=== PATIENT | male | born 1970 | race Caucasian/White ===

== ENCOUNTER → 2023-04-22 06:15 | Day surgery (SDC) | payer OTHER, SELFPAY | LOC: GI 06:15 | PROVIDERS: ATTENDING PHYSICIAN Internal Medicine Gastroenterology; FAMILY PHYSICIAN Physician Assistant Medical | DX: Z12.11 Encounter for screening for malignant neoplasm of colon (principal); K57.30 Diverticulosis of large intestine without perforation or abscess without bleeding | CPT/HCPCS: G0121 ==

== ENCOUNTER 2023-10-31 06:47 | Emergency (ER) | payer OTHER, SELFPAY ==
[2023-10-31 06:52] VITALS: BP 178/117
--- NOTE | 2023-10-31 08:30 | ED.MUSCINJ ---
HPI-Injury
General
Chief Complaint: Musculo-Skeletal Complaint
Source: patient
Exam Limitations: none
Time Seen by Provider: 10/31/23 07:23
Nursing documentation reviewed up to this point in time: agreed with
History of Present Illness-Injury
Initial Injury comments:
52-year-old male with history of HTN, HLD presents stating gradually increasing swelling and pain of the right knee over the past 3 days. Denies fever or chills. No recollection of overuse or injury.
He does have a history of gout in that knee and typically when he gets the swelling and pain he starts colchicine and within 2 days the pain is significantly improved, the pain is not improving with his colchicine this time.
Past History
Past History
ED Past Medical History: HTN and Hypercholesterolemia
ED Past Surgical History: Tonsilectomy
Social History
Tobacco: Non-smoker
Personal:
Living: with family
Employment: Employed
Review of Systems
Review of Systems
Allergies reviewed?: Yes
All Other Systems: ROS reviewed and negative except as documented in HPI and ROS
Constitutional: Denies fever or chills
Musculoskeletal: Reports other (pain, swelling right knee)
Skin: Reports no symptoms
Musculoskeletal Injury Exam
Musculoskeletal Injury Exam
Right Knee:
Pain with Movement?: Moderate
Tender to palpation?: Moderate
Soft tissue swelling?: Moderate
Joint effusion?: Moderate
Hematoma-local bleeding into tissue?: None
Crepitus with movement?: No
Joint instability?: No
Malalignment/deformity?: No
Range of motion: Limited
Distal skin color and temperature: normal-warm & good color
Capillary Refill: normal
Normal distal neurovascular exam?: Yes
Phy Exam
Physical Exam
Physical Exam:
PHYSICAL EXAMINATION:
General: no apparent distress, not acutely ill
Neuro: alert and oriented.
Psychiatric: well kept. interactive and cooperative
Musculoskeletal: Moves with ease
Skin: Warm, pink.
Injury Course
Orders/Labs/Results
Orders:
Orders
10/31/23 06:56
Knee, Right 4 or More Views [CR Knee- Right 4 Or More View*] Urgent
Comment:
Reason For Exam: pain, swelling
10/31/23 08:32
Body Fluid Cell Count Urgent
What is the Body Fluid: joint
Date Specimen was Collected: 10/31/23
Time Specimen was Collected: 08:31
Comment: with DIFF
Body Fluid Crystals Urgent
What is the Body Fluid: joint
Date Specimen was Collected: 10/31/23
Time Specimen was Collected: 08:31
Body Fluid Glucose Urgent
Fluid Source: Other
Other Source: R knee
Date Specimen was Collected: 10/31/23
Time Specimen was Collected: 08:31
Lyme PCR, DNA [S] Urgent
Fluid Culture with Gram Stain Urgent
KELY Source: Joint Fluid
Specimen Description:
Date Specimen was Collected: 10/31/23
Time Specimen was Collected: 08:31
10/31/23 09:34
Brody Wrap Right-Treatment ONCE
Procedures
Incision/Drainage/Joint Aspiration
Right Lateral Knee:
Anethesia: 1% Lidocaine with Epi
Preparation: cleaned with alcohol wipe
Type of procedure: aspiration
Nature of site: other (effusion)
How much fluid was obtained?: number in mls
Fluid description: clear and straw colored
Treatment: bandaid applied
MDM/Problems Addressed
Differential Diagnosis Includes:
Inflammatory fluid, hemarthrosis, torn meniscus, Lyme's
MDM/Problems Addressed:
52-year-old male with history of HTN, HLD presents stating gradually increasing swelling and pain of the right knee over the past 3 days. Denies fever or chills. No recollection of overuse or injury.
He does have a history of gout in that knee and typically when he gets the swelling and pain he starts colchicine and within 2 days the pain is significantly improved, the pain is not improving with his colchicine this time.
Afebrile, NAD
No redness or warmth, do not suspect gout, no sign of cellulitis
R knee xray initially read by this examiner: No fracture, mild DJD, +suprapatellar effusion.
9:45 a.m
Joint fluid results consistent with inflammatory fluid, no infection
Lyme test pending
Pt ambulating well with brody wrap.
Referred to orthopedics
*Critical Care Note
Total Time (30-74mins, 75-104mins- exclusive of procedures): Not Applicable
ED Attending Note
-
Portions of this chart may have been created with voice recognition software.� Occasional wrong word or��sound alike� substitutions may have occurred due to the inherent limitations of voice recognition software.
Discharge Plan
Departure
Patient Disposition: Home (Routine Discharge)
Date of Disposition: 10/31/23
Time of Disposition: 09:49
Patient with high blood pressure during this ER visit?: Yes
Condition: Good
Discharge Problem:
Effusion of right knee
Instructions: Swollen Joints (DC), Using Cold for Pain, BLOOD PRESSURE
Prescriptions:
No Action
diltiazem HCl [Taztia XT] 360 MG capsule,extended release 24 hr
360 mg PO DAILY
losartan-hydrochlorothiazide 1 EACH tablet
1 tab PO DAILY
nebivolol [Bystolic] 10 MG tablet
10 mg PO DAILY
Referrals:
Basilia Estrada PA [Family Provider] -
Carson Nichole MD [Active] - Next open appointment
Activity Restrictions/Additional Instructions:
As we discussed, wear the Brody wrap as needed for comfort, support, swelling
Tylenol or ibuprofen as needed for pain.
Cold compress 20 minutes off and on is much as you can in the next 2 days to minimize swelling.
I have provided you with the name of an orthopedic doctor to follow-up with if your symptoms persist.
Your blood pressure is a little high, not dangerously high. Check it at home under calm circumstances. If it remains consistently above 130/80, discuss with your doctor.
Interventions
Interventions:
*Risk Screen - Suicide Last Done: 10/31/23 06:52
*General Assessment Last Done: 10/31/23 06:52
*Neglect/Abuse Screening Last Done: 10/31/23 06:52
*Nursing Disposition Last Done: 10/31/23 10:10
ED-Musculoskeletal Assessment Last Done: 10/31/23 08:39
Discharge Date and Time
Discharge Date/Time: 10/31/23 10:11
Print Language: ROMANSH
[2023-10-31 08:38] VITALS: BP 168/98
[2023-10-31 09:22] LABS: Body Fluid Glucose 159 mg/dl
[2023-10-31 09:39] LABS: Body Fluid Mononuclear 30.1 %; Body Fluid Polymorphonuclear 69.9 %; Body Fluid WBC 7730 /CUMM
[2023-10-31 09:43] LABS: Body Fluid Second Tech CMB
[2023-10-31 10:00] VITALS: BP 163/99
[2023-11-03 20:09] LABS: Lyme Disease DNA by PCR Not Detected; Lyme Source Synovial fluid
== END 2023-10-31 10:11 | disposition home or self-care (01) ==
LOC: EMR 06:47
PROVIDERS: Registered Nurse; EMERGENCY PHYSICIAN Emergency Medicine; FAMILY PHYSICIAN Physician Assistant Medical
DX: M25.461 Effusion, right knee (principal); I10 Essential (primary) hypertension; E78.00 Pure hypercholesterolemia, unspecified
CPT/HCPCS: 99284; 20610; 73564; 82945; 87015; 87070; 87205; 87476; 89051; 89060

== ENCOUNTER 2024-05-14 05:38 | Emergency (ER) | payer OTHER, SELFPAY ==
[2024-05-14 05:40] VITALS: BP 213/135
[2024-05-14 06:03] VITALS: BMI 34.2
[2024-05-14 06:05] VITALS: BP 175/117
--- NOTE | 2024-05-14 06:05 | ED.GENMED ---
History of Present Illness
General
Chief Complaint: Blood Pressure Problem
Time Seen by Provider: 05/14/24 06:04
History of Present Illness
History of Present Illness:
TIME OF INITIAL ENCOUNTER: 6:10 AM
HPI: Pt woke w/ JOSE 0430 today. He took Aleve and now the headache is significantly improved. His BP was as high as 223 systolic prior to coming here. His blood pressures have been in the 150s range in the past. No vision change. Nevibolol was
increased a few months ago. He also takes amlodipine and losartan. He did take his morning BP meds prior to coming here.
EXAM:
GENERAL: Well appearing in no distress, high blood pressure noted
HEENT: Moist oral mucosa
CARDIOVASCULAR: No murmurs, normal heart rate, regular rhythm, No chest wall tenderness
PULMONARY: No respiratory distress, breath sounds are clear and equal
ABDOMEN: Soft with no peritoneal signs, no tenderness
NEUROLOGIC: Excellent strength all extremities, no coordination deficits
PSYCHIATRIC: Appropriate mental status, normal insight and judgement
EXTREMITIES: Nontender, no edema, moves all extremities equally
SKIN: No rash, no lesions
NUMBER AND COMPLEXITY OF PROBLEMS ADDRESSED AT THE ENCOUNTER
� Chronic conditions affecting care: High blood pressure, hyperlipidemia, diabetes
� Acute Exacerbation and/or Progression of Chronic Illness: This is an acute problem
� Differential Diagnosis includes: Hypertensive urgency/emergency, poorly controlled high blood pressure, patient denies medication noncompliance, renal insufficiency
AMOUNT AND/OR COMPLEXITY OF DATA TO BE REVIEWED AND ANALYZED
� I performed an independent evaluation of and my interpretation is:
EKG: Sinus 65, normal axis, no acute ST abnormality, LVH
CT:
X-rays:
Laboratory Studies: Creatinine 1.1, glucose 196, CBC unremarkable
Other:
� Review of other/old records: I reviewed records, CAT scan of brain in 2013 was unremarkable
� Clinical information was obtained by an independent historian: I spoke to at bedside
� Prescriptions/Medications Considered but not given:
� Further testing considered but not performed:
RISK OF COMPLICATIONS AND/OR MORBIDITY OR MORTALITY OF PATIENT MANAGEMENT
� Social determinants of health affecting care:
� Discussion with other providers: I discussed case with Dr. Fam as patient's blood pressure has been markedly elevated earlier today.
� Escalation of care including admission/observation vs risk of discharge considered: The patient took his BP meds including amlodipine 10 mg, nebivolol 20 mg, and losartan 100 mg. His heart rate has been as low as 49 here.
Initial blood pressures to the 13/135 but without any additional intervention was down to 142/105.
ANY OTHER UPDATES:
7:20 AM: I reassessed patient. No further issues and headache has continued to improve after he took Aleve earlier today. Dr. Fam states that the patient can call his office for follow-up. I also informed patient of the high blood sugar and
should follow-up with PMD as well.
Past History
Past History
ED Past Medical History: HTN and Hypercholesterolemia
ED Past Surgical History: Tonsilectomy
Social History
Tobacco: Non-smoker
Personal:
Living: with family
Employment: Employed
Phy Exam
Physical Exam
Physical Exam:
See HPI
Course
Orders/Labs/Results
Orders:
Orders
05/14/24 05:44
ECG [Electrocardiogram (*1)] Urgent
Reason for Study: Hypertension, Benign
EKG- Treatment ONCE
05/14/24 06:35
Basic Metabolic Panel Urgent
Complete Blood Count/With Diff Urgent
Abnormal Lab Results
05/14/24
06:35
MPV 10.5 H fL
(7.4-10.4)
Absolute Monos (auto) 0.7 H 10^3/uL
(0.1-0.6)
Monocytes % 10.9 H %
(1.7-9.3)
Glucose 196 H mg/dl
(70-99)
05/14/24 06:35
05/14/24 06:35
Vital Signs
Initial and Last Documented VS:
Initial Vital Signs
Temp Pulse Resp BP Pulse Ox
36.8 C 74 22 213/135 100
05/14/24 05:40 05/14/24 05:40 05/14/24 05:40 05/14/24 05:40 05/14/24 05:40
Last Documented Vital Signs
Temp Pulse Resp BP Pulse Ox
36.8 C 49 10 142/105 98
05/14/24 05:40 05/14/24 07:00 05/14/24 07:00 05/14/24 07:00 05/14/24 07:00
*Critical Care Note
Total Time (30-74mins, 75-104mins- exclusive of procedures): Not Applicable
ED Attending Note
-
Portions of this chart may have been created with voice recognition software.� Occasional wrong word or��sound alike� substitutions may have occurred due to the inherent limitations of voice recognition software.
Discharge Plan
Departure
Prescriptions:
No Action
atorvastatin 20 mg Tablet
20 mg PO DAILY
amlodipine 10 mg Tablet
10 mg PO DAILY
metformin 1,000 mg Tablet
1,000 mg PO BID
losartan 100 mg Tablet
100 mg PO DAILY
nebivolol 20 mg Tablet
20 mg PO DAILY
Interventions
Interventions:
*Risk Screen - Suicide Last Done: 05/14/24 05:40
*General Assessment Last Done: 05/14/24 06:06
*Neglect/Abuse Screening Last Done: 05/14/24 05:40
ED- Fall Risk Assessment Last Done: 05/14/24 06:42
*ED COVID-19 Vaccine History Last Done: 05/14/24 06:03
ED- Cardiac Assessment Last Done: 05/14/24 07:04
ED- Neurological Assessment Last Done: 05/14/24 07:04
ED- Pulmonary Assessment Last Done: 05/14/24 07:05
Discharge Date and Time
Print Language: CYMRAES
--- NOTE | 2024-05-14 06:09 | EDRN ---
Pt woke this morning with L sided headache. Pt checked his bp and it was 228/150. Pt was going to 'sleep it off' but thought it was too high and he should be evaluated. Pt checks his bp daily and usually runs around 150/100. No photophobia, n/v,
dizziness, weakness, cp/sob, abd pain, fever/chills. Pt took aleve at 0430, pt unsure if it helped his pain.
[2024-05-14 06:30] VITALS: BP 170/116
[2024-05-14 06:50] LABS: % Basophils 1.2 % (0-2); % Eosinophils 5.1 % (0-6); % Immature Granulocytes 0.3 % (0-0.5); % Lymphocytes 26.9 % (20.5-51.1); % Monocytes 10.9 % (1.7-9.3); % Neutrophils 55.6 % (42.2-75.2); Absolute Basophils 0.1 10^3/uL (0-0.2); Absolute Eosinophils 0.3 10^3/uL (0-0.7); Absolute Lymphocytes 1.6 10^3/uL (1.2-3.4); Absolute Monocytes 0.7 10^3/uL (0.1-0.6); Absolute Neutrophils 3.4 10^3/uL (1.4-6.5); Hematocrit 42.7 % (39.0-52.0); Hemoglobin 14.6 g/dL (13.0-18.0); Mean Corp Hgb Conc. 34.2 g/dL (33.0-37.0); Mean Corpuscular Hgb 28.9 pg (27.0-31.0); Mean Corpuscular Volume 84.4 fL (80.0-94.0); Mean Platelet Volume 10.5 fL (7.4-10.4); Nucleated Red Blood Cells % 0 % (-); Platelet Count 253 10^3/uL (130-400); Red Blood Cell Count 5.06 10^6/uL (4.70-6.10); Red Cell Dist. Width 11.9 % (11.5-14.5)
[2024-05-14 06:55] VITALS: BP 159/114
[2024-05-14 07:00] VITALS: BP 142/105
[2024-05-14 07:10] LABS: Blood Urea Nitrogen 18 mg/dl (9-20); Calcium 8.4 mg/dl (8.4-10.2); Carbon Dioxide 25 mmol/L (22-30); Chloride 102 mmol/L (98-107); Estimated Creatinine Clearance 82 ml/min; Glucose 196 mg/dl (70-99); Potassium 3.6 mmol/L (3.5-5.1); Sodium 136 mmol/L (135-145); eGFR > 60.00
== END 2024-05-14 07:49 | disposition home or self-care (01) ==
LOC: EMR 05:38
PROVIDERS: EMERGENCY PHYSICIAN Emergency Medicine; FAMILY PHYSICIAN Physician Assistant Medical
DX: I10 Essential (primary) hypertension (principal); E78.00 Pure hypercholesterolemia, unspecified
CPT/HCPCS: 99283; 80048; 85025; 93005

== ENCOUNTER → 2024-07-05 07:41 | Outpatient (REF) | payer OTHER, SELFPAY | LOC: RAD 07:41 | PROVIDERS: ATTENDING PHYSICIAN Specialist; FAMILY PHYSICIAN Physician Assistant Medical | DX: I10 Essential (primary) hypertension (principal); E11.9 Type 2 diabetes mellitus without complications; R80.1 Persistent proteinuria, unspecified | CPT/HCPCS: 76770; 93975 ==